=== PATIENT | male | born 1975 | race American Indian/Alaskan Native ===

== ENCOUNTER 2019-02-19 18:36 | Emergency (ER) | payer OTHER ==
[2019-02-19] MEDS ORDERED: NORCO 5/325 PO ONE ×2 (19:32→21:20)
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
[2019-02-19] MEDS ORDERED: FLEXERIL PO ONE (21:20)
[2019-02-19] MEDS ORDERED: IBUPROFEN PO ONE (21:20)
[2019-02-19] MEDS ORDERED: ZOFRAN ODT PO ONE (21:20)
[2019-02-19 22:05] VITALS: BP 160/75
== END 2019-02-19 22:06 | disposition home or self-care (01) ==
LOC: ED 18:36
DX: M54.2 Cervicalgia (principal); M54.5 Low back pain; Z79.899 Other long term (current) drug therapy; V47.5XXA Car driver injured in collision with fixed or stationary object in traffic accident, initial encounter; Y93.89 Activity, other specified; Y92.488 Other paved roadways as the place of occurrence of the external cause; Y99.8 Other external cause status
CPT/HCPCS: 72040; 72070; 99283; Q0162